=== PATIENT | male | born 1980 | race Caucasian/White ===

== ENCOUNTER 2016-09-30 15:22 | Emergency (ER) | payer OTHER ==
[2016-09-30 15:31] VITALS: RESP 16
--- NOTE | 2016-09-30 15:33 | EDPHY ---
H & P Time Seen by Provider: 09/30/16 15:24 HPI/ROS: CHIEF COMPLAINT: Left shoulder pain possible dislocation HISTORY OF PRESENT ILLNESS: 35-year-old male with no prior history of shoulder dislocation arrives via ambulance after he fell onto his left shoulder while skiing approximately 5 miles an hour. No head injury. No paresthesia. Reproducible pain with range of motion. Per EMS he had a visible defect Initiallyand may have spontaneous reduced en route. He denies: Peripheral paresthesia, weakness, numbness, head injury, neck pain injury, chest pain, dyspnea, straddle injury, abdominal pain or injury PRIMARY CARE PROVIDER: [facility] REVIEW OF SYSTEMS: A ten point review of systems was performed and is negative with the exception of the items mentioned in the HPI PAST MEDICAL/SURGICAL HISTORY: no anticoagulant use SOCIAL HISTORY: denies alcohol use at time of incident PHYSICAL EXAM 1) GENERAL: Well-developed, well-nourished, alert and oriented. Appears to be in no acute distress. Answering questions appropriately. 2) HEAD: Normocephalic, atraumatic 3) HEENT: Pupils equal, round, reactive to light bilaterally. . 4) NECK: No cervical collar is on. Posterior cervical spine is nontender, no stepoff, no effusion. Full range of motion which does not elicit any midline cervical spine pain, no posterior midline tenderness, no step-off. 5) LUNGS: Clear to auscultation bilaterally. 6) HEART: Regular rate and rhythm, 7) ABDOMEN: No guarding, no rebound, no focal tenderness, no peritoneal signs, no signs of trauma, no ecchymosis 8) MUSCULOSKELETAL: left upper extremity: Normal anatomic landmarks, no step- off, reproducible pain with range of motion. Proximally distally including the clavicle nontender. Scapula nontender. Radial ulnar median nerve function distally intact. Bilateral deltoid sensation intact. Otherwise, Moving all extremities, no focal areas of tenderness, no obvious trauma. 9) BACK: No midline vertebral tenderness 10) SKIN: No laceration. No abrasion DIFFERENTIAL DIAGNOSIS: [ in no particular include but limited to AC separation , shoulder dislocation, fracture Constitutional: Initial Vital Signs Temperature (C) 36.3 C 09/30/16 15:27 Heart Rate 62 03/31/17 15:27 Respiratory Rate 16 09/30/16 15:27 Blood Pressure 141/78 H 09/30/16 15:27 O2 Sat (%) 97 09/30/16 15:27 O2 Delivery Mode Room Air Allergies/Adverse Reactions: Sulfa (Sulfonamide Antibiotics) Allergy (Verified 04/21/13 06:01) Home Medications: Medication Instructions Recorded Miralax 17 gm (OTC) 04/21/13 Hydrocodone/APAP 5/325 [[place] 1 tab PO Q6 PRN #7 tab 09/30/16 5/325 (RX)] Ibuprofen [Motrin (*)] 600 mg PO Q6 #15 tab 09/30/16 MDM/Departure - MDM Diagnostics: Xray of the left shoulder interpreted by myself: AC separation, otherwiseno definitive acute osseous abnormality, no dislocation Procedures: Procedure: Splint an upper extremity sling was applied by ER machine shop repair technician. After application of the splint I returned and re-examined the patient. The splint was adequately immobilizing the joint and distal to the splint the patient's circulation and sensation were intact. Patient shows no signs of compartment syndrome. Was given orthopedic precautions. ED Course/Re-evaluation: Re-evaluation with serial examinations. Discussed limitations of x-rays in the diagnosis of acute shoulder injury informed that non osseous injury not ruled out. Stressed the importance and recommended follow up with Orthopedics. Given this referral information . usual and customary orthopedic precautions instructions provided. - Depart Disposition: Home, Routine, Self-Care Clinical Impression: Downhill skiing Skiing accident Qualifiers: Encounter type: initial encounter Qualified Code(s): V00.328A - Other snow-ski accident, initial encounter Sprain of left shoulder Qualifiers: Encounter type: initial encounter Shoulder sprain type: unspecified sprain Qualified Code(s): S43.402A - Unspecified sprain of left shoulder joint, initial encounter Separation of left acromioclavicular joint Qualifiers: Encounter type: initial encounter Qualified Code(s): S43.102A - Unspecified dislocation of left acromioclavicular joint, initial encounter Condition: Good Instructions: Shoulder Sprain (ED), Acromioclavicular Separation (ED) Additional Instructions: Return to the ER immediately if you experience discoloration, have worsening pain, numbness, tingling, or any other symptoms that concern you. If you received x-rays in the emergency department today, be advised, that ligamentous , tendon, muscular, and other non-bony injury cannot be fully ruled out. Try to keep your affected extremity elevated above the level of your chest, and keep cold packs on the affected area, for the next 48 hours. Prescriptions: Hydrocodone/APAP 5/325 [[place] 5/325 (RX)] 1 tab PO Q6 PRN #7 tab PRN Reason: Pain, Severe Ibuprofen [Motrin (*)] 600 mg PO Q6 #15 tab Referrals: Ezequiel Saucedo MD [Medical Doctor] - 2-3 days without fail (Dr. Ezequiel Saucedo is an orthopedic surgeon)
[2016-09-30] MEDS ORDERED: IBUPROFEN 600 MG TAB PO ONE (16:16)
[2016-09-30 16:29] VITALS: BP 110/82; PULSE 86; TEMP 97.9; O2SAT 95
== END 2016-09-30 16:45 | disposition home or self-care (01) ==
LOC: EDUNIT#
DX: S43.102A Unspecified dislocation of left acromioclavicular joint, initial encounter (principal); S43.402A Unspecified sprain of left shoulder joint, initial encounter; V00.321A Fall from snow-skis, initial encounter; Y99.8 Other external cause status; Y93.23 Activity, snow (alpine) (downhill) skiing, snowboarding, sledding, tobogganing and snow tubing
CPT/HCPCS: A4565